=== PATIENT | female | born 1955 | race American Indian/Alaskan Native ===

== ENCOUNTER 2020-01-07 12:55 | Outpatient (CLI) | payer OTHER ==
--- NOTE | 2020-01-07 14:24 | XRay Report ---
RIGHT KNEE 2 VIEW(S) INDICATION / CLINICAL INFORMATION: RIGHT KNEE PAIN COMPARISON: None available. FINDINGS: BONES / JOINT(S): No acute fracture or subluxation. Mild degenerative change with narrowing of the me dial joint space. SOFT TISSUES: No significant abnormality. ADDITIONAL FINDINGS: None. Signer Name: Josse Jones MD Signed: 01/07/2020 2:20 PM Workstation Name: [id number]
--- NOTE | 2020-01-07 14:25 | XRay Report ---
LUMBOSACRAL SPINE 2 VIEWS INDICATION / CLINICAL INFORMATION: BACK PAIN. COMPARISON: None available. FINDINGS: VERTEBRAE: No acute fracture. No significant malalignment. DISC SPACES / FACET JOINTS:Intervertebral disc space narrowing at L2-3. 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 PARASPINAL SOFT TISSUES:No significant abnormality. ADDITIONAL FINDINGS: None. Signer Name: Josse Jones MD Signed: 01/07/2020 2:21 PM Workstation Name: [id number]
== END 2020-01-07 12:56 | disposition home or self-care (01) ==
LOC: XRAY 12:55
PROVIDERS: ATTEND Internal Medicine
DX: M17.11 Unilateral primary osteoarthritis, right knee (principal); M47.816 Spondylosis without myelopathy or radiculopathy, lumbar region; M48.061 Spinal stenosis, lumbar region without neurogenic claudication
CPT/HCPCS: 72100